=== PATIENT | female | born 1960 | race Two or more races ===

== ENCOUNTER 2025-09-11 03:17 | Inpatient (IN) | payer OTHER ==
[~2025-09-11] VITALS: Ht 165.1 cm; Wt 77.3 kg
--- NOTE | 2025-09-11 04:04 | ED.PDOC ---
HPI Comments 65-year-old female who came to ER due to chest pains. Patient has history of AFib, and she takes Xarelto for AFib. For the past 3 days, she has been having intermittent episodes of palpitations, associated with chest pains and shortness of breath. Upon arrival to the ER, EKGs revealed patient is on AFib Chief Complaint: Chest Pain Time Seen by MD: 04:04 Reviewed Notes: Nurses Notes Allergies: Coded Allergies: NO KNOWN ALLERGIES (Unverified , 09/11/25) Mode of Arrival: Ambulatory Severity: Moderate Timing: Days Duration: Intermittent Location: Substernal Radiation: No Radiation Quality: Aching, Other (Palpitations) Cardiac Risk Factors: HTN, Other (AFib) Past Medical History PAST MEDICAL HISTORY: AFIB, HTN Surgical History: Denies all surgeries INDUSTRIAL CONTROLLER History: Denies all INDUSTRIAL CONTROLLER Hx Family History Family History: Reviewed,noncontributory to illness Social History Smoker: Non-Smoker Alcohol: Denies ETOH Use Drugs: Denies Drug Use Lives In: Home Constitutional: denies: chills, diaphoresis, fatigue, fever, malaise, sweats, weakness, others EENTM: denies: blurred vision, double vision, ear bleeding, ear discharge, ear drainage, ear pain, ear ringing, eye pain, eye redness, hearing loss, mouth pain, mouth swelling, nasal discharge, nose bleeding, nose congestion, nose pain, photophobia, tearing, throat pain, throat swelling, voice changes, others Respiratory: reports: shortness of breath; denies: cough, hemoptysis, or thopnea, SOB at rest, SOB with excertion, stridor, wheezing, others Cardiovascular: reports: chest pain, palpitations; denies: dizzy spells, diaphoresis, Dyspnea on exertion, edema, irregular heart beat, left arm pain, lightheadedness, PND, syncope, others Gastrointestinal: denies: abdomen distended, abdominal pain, blood streaked bowels, constipated, diarrhea, dysphagia, difficulty swallowing, hematemesis, melena, nausea, poor appetite, poor fluid intake, rectal bleeding, rectal pain, vomiting, others Genitourinary: denies: abnormal vagina bleeding, burning, dyspareunia, dysuria, flank pain, frequency, hematuria, incontinence, pain, , vagina d ischarge, urgency, others Neurological: denies: dizziness, fainting, headache, left sided numbness, left sided weakness, numbness, paresthesia, pre-existing deficit, right sided numbness, right sided weakness, seizure, speech problems, tingling, tremors, weakness, others Musculoskeletal: denies: back pain, gout, joint pain, joint swelling, muscle pain, muscle stiffness, neck pain, others Integumetry: denies: bruises, change in color, change in hair/nails, dryness, laceration, lesions, lumps, rash, wounds, others Allergic/Immunocompromised: denies: Difficulty Healing, Frequent Infections, Hives, Itching, others Hematologic/Lymphatic: denies: anemia, blood clots, easy bleeding, easy bruising, swollen glands, others Endocrine: denies: excessive hunger, excessive sweating, excessive thirst, excessive urination, flushing, intolerance to cold, intolerance to heat, unexplained weight gain, unexplained weight loss, others Psychiatric: denies: anxiety, bipolar disorder, depression, hopeless, panic disorder, schizophrenia, sleepless, suicidal, others Physical Exam General Appearance: No Apparent Distress, Normal HEENT: Normal ENT Inspection, Pharynx Normal, TMs Normal Neck: Full Range of Motion, Non-Tender, Normal, Normal Inspection Respiratory: Chest Non-Tender, Lungs Clear, No Accessory Muscle Use, No Respiratory Distress, Normal Breath Sounds Cardiovascular: No Edema, No JVD, No Murmur, No Gallop, Normal Peripheral Pulses, Regular Rate/Rhythm Breast Exam: Deferred Gastrointestinal: No Organomegaly, Non Tender, No Pulsatile Mass, Normal Bowel Sounds, Soft Genitalia: Deferred Pelvic: Deferred Rectal: Deferred Extremities: No calf tenderness, Normal capillary refill, Normal inspection, Normal range of motion, Non-tender, No pedal edema Musculoskeletal : Apperance: Normal Neurologic: Alert, sales service rep II-XII nml as Tested, No Motor Deficits, Normal Affect, Normal Mood, No Sensory Deficits Cerebellar Function: Normal Reflexes: Normal Skin: Dry, Normal Color, Warm Lymphatic: No Adenopathy EKG EKG : Pulse Rate (adult): 164 Cardiac Rhythm: Afib Was a procedure done? Was a procedure done?: No CP Differential Dx Differential Diagnosis: A-fib, Angina, Anxiety / Panic Attack, Electrolyte Disorder, Hyperthyroidism, Hyperventilation, Renal Failure, Sinus Tachycardia X-Ray, Labs, Meds, VS Vital Signs Date Time Temp Pulse Resp B/P (MAP) Pulse Ox O2 Delivery O2 Flow Rate FiO2 09/11/25 04:04 164 09/11/25 03:27 164 09/11/25 03:19 98.0 80 18 123/89 98 98.0 Lab Test 09/11/25 04:44 09/11/25 03:45 Range/Units Troponin I High Sensitivity Pending 5 </=34 ng/L White Blood Count 10.7 4.4-10.8 10^3/uL Red Blood Count 4.38 4.0-5.20 10^6/uL Hemoglobin 14.9 12.2-16.2 g/dL Hematocrit 43.1 36.0-46.0 % Mean Corpuscular Volume 98.6 80.0-100.0 fL Mean Corpuscular Hemoglobin 34.0 H 28.0-32.0 pg Mean Corpuscular Hemoglobin Concent 34.5 32.0-36.0 g/dL Red Cell Distribution Width 14.7 H 11.8-14.3 % Platelet Count 272 140-450 10^3/uL Mean Platelet Volume 8.5 6.9-10.8 fL Neutrophils (%) (Auto) 77.4 37.0-80.0 % Lymphocytes (%) (Auto) 12.2 10.0-50.0 % Monocytes (%) (Auto) 8.1 0.0-12.0 % Eosinophils (%) (Auto) 1.8 0.0-7.0 % Basophils (%) (Auto) 0.5 0.0-2.0 % Neutrophils # (Auto) 8.3 1.6-8.6 10 ^3/uL Lymphocytes # (Auto) 1.3 0.4-5.4 10 ^3/uL Monocytes # (Auto) 0.9 0-1.3 10 ^3/uL Eosinophils # (Auto) 0.2 0-0.8 10 ^3/uL Basophils # (Auto) 0.1 0-0.2 10 ^3/uL Nucleated Red Blood Cells 0.1 % Prothrombin Time Pending Prothrombin Time INR Pending Activated Partial Thromboplast Time Pending Sodium Level 145 136-145 mmol/L Potassium Level 4.3 3.5-5.1 mmol/L Chloride Level 108 H 98-107 mmol/L Carbon Dioxide Level 27 20-31 mmol/L Anion Gap 10 5-15 Blood Urea Nitrogen 11 9-23 mg/dL Creatinine 1.01 0.550-1.02 mg/dL Glomerular Filtration Rate Calc 61 >90 mL/min BUN/Creatinine Ratio 10.9 10.0-20.0 Serum Glucose 105 74-106 mg/dL Calcium Level 9.1 8.7-10.4 mg/dL Magnesium Level 2.1 1.6-2.6 mg/dL Total Bilirubin 0.5 0.2-1.0 mg/dL Aspartate Amino Transferase (AST) 24 13-40 U/L Alanine Aminotransferase (ALT) 31 7-40 U/L Alkaline Phosphatase 72 46-116 U/L B-Type Natriuretic Peptide 85.44 0-100 pg/mL Total Protein 6.7 5.7-8.2 g/dL Albumin 4.2 3.2-4.8 g/dL Thyroid Stimulating Hormone (TSH) Pending Free Thyroxine (T4) Calculated Pending Time of 1ST Reevaluation: 03:52 Reevaluation 1ST: Unchanged Patient Education/Counseling: Diagnosis, Treatment Family Education/Counseling: Diagnosis, Treatment SEPSIS Sepsis Screen Date sepsis recognized/suspect: Sep 11, 2025 Time Sepsis recognized/suspect: 320 Recent Procedure: No On Antibiotic Therapy: No Respiratory Rate >20: No Heart Rate >90: No Temp<36 C (96.8 F) or >38.3 C: No SBP <90 or MAP <65 mmHG: No New Acute Mental Status Change: No Is the patient on CPAP, BIPAP,: No Physician Orders Electrocardigram (09/11/25 03:31) Electrocardigram (09/11/25 04:31) Electrocardigram (09/11/25 06:31) Chest Portable (09/11/25 03:39) PTPTT (09/11/25 03:39) Thyroid Stimulating Hormone (09/11/25 03:39) Troponin-I Hs (09/11/25 04:39) Troponin-I Hs (09/11/25 06:39) Free T4 (Free Thyroxine) (09/11/25 03:39) Vital Signs Date Time Temp Pulse Resp B/P (MAP) Pulse Ox O2 Delivery O2 Flow Rate FiO2 09/11/25 04:04 164 09/11/25 03:27 164 09/11/25 03:19 98.0 80 18 123/89 98 98.0 Laboratory Tests Test 09/11/25 03:45 White Blood Count 10.7 10^3/uL (4.4-10.8) Departure 1 Departure Time of Disposition: 05:15 Impression: Primary Impression: Atrial fibrillation with rapid ventricular response Additional Impression: Acute coronary syndrome Disposition: ADMITTED INPATIENT Admit to: Tele Condition: Guarded Discharged With: Self Comments 65-year-old female with a history of paroxysmal show atrial fibrillation. Patient is in AFib in her rate is quite tachycardic. Lab results and chest x- ray results reviewed. Patient will need admission for rate control and further cardiac workup. Critical Care Note Critical Care Time?: Yes (35 min-critical care time only) Critical care comment: AFibTotal critical care time: Approximately 36 minutes Due to a high probability of clinically significant, life threatening deterioration, the patient required my highest level of preparedness to intervene emergently and I personally spent this critical care time directly and personally managing the patient. This critical care time included obtaining a history; examining the patient; pulse oximetry; ordering and review of studies; arranging urgent treatment with development of a management plan; evaluation of patient's response to treatment; frequent reassessment; and, discussions with other providers. This critical care time was performed to assess and manage the high probability of imminent, life-threatening deterioration that could result in multi-organ failure. It was exclusive of separately billable procedures and treating other patients. Stability Stability form required: No Heart Score Heart Score: Heart Score Response (Comments) Value History Moderate Suspicious 1 EKG Repolarization Disturb 1 Age >65 2 Risk Factors 1 or 2 risk factors 1 Troponin Normal limit 0 Total 5 I personally scribed for AMINA ROMERO MD ([email or web address]) on 09/11/25 at 04:04. Electronically submitted by Sunny Perry ([email or web address]). AMINA ROMERO MD Sep 11, 2025 04:04
--- NOTE | 2025-09-11 04:35 | DVH ---
CHEST RADIOGRAPH Indication: SOB Technique: Single frontal view of the chest was obtained Comparison: None IMPRESSION: Heart appears normal in size. The lungs appear clear without focal airspace opacity, effusion, or pn eumothorax.
[2025-09-11 04:37] LABS: Alanine Aminotransferase 31 U/L (7-40); Albumin 4.2 g/dL (3.2-4.8); Alkaline Phosphatase 72 U/L (46-116); Anion Gap 10 (5-15); BUN/Creatinine Ratio 10.9 (10.0-20.0); Bilirubin, Total 0.5 mg/dL (0.2-1.0); Blood Urea Nitrogen 11 mg/dL (9-23); Calcium 9.1 mg/dL (8.7-10.4); Carbon Dioxide 27 mmol/L (20-31); Glucose 105 mg/dL (74-106); Magnesium 2.1 mg/dL (1.6-2.6); Potassium 4.3 mmol/L (3.5-5.1); Sodium 145 mmol/L (136-145); Total Protein 6.7 g/dL (5.7-8.2)
[2025-09-11 04:44] LABS: Hematocrit 43.1 % (36.0-46.0); Hemoglobin 14.9 g/dL (12.2-16.2); Mean Corpuscular Hemoglobin 34.0 pg (28.0-32.0); Mean Corpuscular Volume 98.6 fL (80.0-100.0); Nucleated Red Blood Cells % 0.1 %
[2025-09-11 04:52] LABS: Chloride 108 mmol/L (98-107)
[2025-09-11 05:15] LABS: INR 1.2 (0.9-1.15); Partial Thromboplastin Time 36.8 SEC (24.5-34.5); Prothrombin Time 12.5 sec (9.3-11.8)
--- NOTE | 2025-09-11 06:44 | DVHHP2 ---
Admitting Diagnosis: Afib with RVR, CP History of Present Illness History Source: Patient Exam Limitations: No limitations HPI Mrs. Martina Haque is a 65-year-old female with a history of afib, hypertension who presents with a chief complaint of chest pains. Patient reports for the past 3 days, she has been having intermittent episodes of palpitations, associated with chest pains and shortness of breath. Patient reports midsternal non radiating chest pain dull in nature with associated palpitations. Patient endorses her kitchen supervisor is Dr. Goetz. Patient denies dizziness, nausea, vomiting, dyspnea. Patient EKG resulted atrial fibrillation with rapid ventricular rhythm. Patient admitted for further evaluation and treatment. Past Medical History Cardiac: AFIB, HTN Pulmonary: No pertinent Hx Central Nervous System: No pertinent Hx GI: No pertinent Hx Hemotology/Oncology: No pertinent Hx Hepatobiliary: No pertinent Hx Psychiatric: No pertinent Hx Musculoskeletal: No pertinent Hx Rheumotologic: No pertinent Hx Infectious Disease: No peritnent Hx ENT: No pertinent Hx Renal/: No pertinent Hx Endocrine: No pertinent Hx Dermatology: No pertinent Hx Smoker: No Hx (Negative) Alocohol: None Drugs: None Domestic Violence: Neg Review of Systems Constitutional: No symptom reported Ears, Nose, & Throat: No symptom reported Eyes: No symptom reported Pulmonary/Respiratory: No symptom reported Cardiovascular: Chest Pain, Palpitations Gastrointestinal: No symptom reported Genitourinary: No symptom reported Musculoskeletal: No symptom reported Skin: No symptom reported Psychiatric: No symptom reported Endocrine: No symptom reported Hemotologic/Lymphatic: No symptom reported H&P Exam Vital Signs Vital Signs Date Time Temp Pulse Resp B/P (MAP) Pulse Ox O2 Delivery O2 Flow Rate FiO2 09/11/25 04:04 164 09/11/25 03:19 98.0 18 123/89 98 98.0 General Appeara: Well developed, Well nourished, Normal Appearance Head Exam: Normal inspection Neck Exam: Normal inspection, Non-tender, Normal alignment Eye Exam: bilateral eye Normal inspection, bilateral eye PERRL, bilateral eye EOMI Ear Exam: bilateral ear Auricle normal Nasal Exam: Normal inspection Mouth: Normal Inspection Pulmonary/Respiratory: Normal inspection, Normal breath sounds, Chest non- tender, Lungs clear Cardiovascular/Chest: Normal inspection, Tachycardia, Irregularly irregular Peripheral Pulses: 2+ dorsalis pedis (R), 2+ dorsalis pedis (L), 2+ Radial (R), 2+ Radial (L) Abdominal Exam: Normal bowel sounds, Soft Tendon/ Neuro: Normal sensation ECONOMIC RESEARCH ASSISTANT Exam: Normal hearing, PERRL Motor/Sensory: Normal sensory function, Normal motor function Neuro/Mental St: Alert, Oriented Appearance: Appropriate appearance, Appropriate insight Eye contact/ Speech: Cooperative, Good eye contact Thoughts/Psych: Normal thought pattern Skin Exam: Normal inspection, Normal color, Warm/dry SEPSIS Sepsis Screen Date sepsis recognized/suspect: Sep 11, 2025 Time Sepsis recognized/suspect: 320 Recent Procedure: No On Antibiotic Therapy: No Respiratory Rate >20: No Heart Rate >90: No Temp<36 C (96.8 F) or >38.3 C: No SBP <90 or MAP <65 mmHG: No New Acute Mental Status Change: No Is the patient on CPAP, BIPAP,: No Physician Orders Electrocardigram (09/11/25 03:31) Electrocardigram (09/11/25 04:31) Electrocardigram (09/11/25 06:31) Chest Portable (09/11/25 03:39) Troponin-I Hs (09/11/25 06:39) Free T4 (Free Thyroxine) (09/11/25 03:39) Amiodarone 360mg/200ml Premix (Nexterone (09/11/25 05:30) Amiodarone 360mg/200ml Premix (Nexterone (09/11/25 11:30) Admit (09/11/25 06:35) * Cardiology Consult (09/11/25 06:35) Echo 2d Mode Cardiac Dop (09/11/25 06:35) Basic Metabolic Panel (09/11/25 06:35) Cardiac Diet-2gna,Lofat,Lochol (09/11/25 Breakfast) Full Code (09/11/25 06:35) Nitroglycerin Sublingual (Ntrostat Subli (09/11/25 06:45) Morphine Sulfate Injection (09/11/25 06:45) Stat Ekg For Chest Pain (09/11/25 06:35) Notify Md Of Changes From Base (09/11/25 06:35) Rayon Winder For 24 Hours (09/11/25 06:35) Emergency Dysrhythmia Protocol (09/11/25 06:35) Rhythm Strips Once Every Shift (09/11/25 06:35) Oxygen By Nasal Cannula (09/11/25 06:35) Magnesium (09/11/25 06:35) Full Code (09/11/25 06:35) Ondansetron Hcl (Zofran) (09/11/25 06:45) Acetaminophen Tablet (Tylenol Tablet) (09/11/25 06:45) Famotidine Tablet (Pepcid Tablet) (09/11/25 10:00) Hydrocodone-Acet 5/325mg Tab (Rescue 5/32 (09/11/25 06:45) Aspirin Tablet (09/11/25 10:00) Enoxaparin Sodium (Lovenox) (09/11/25 10:00) Vital Signs Date Time Temp Pulse Resp B/P (MAP) Pulse Ox O2 Delivery O2 Flow Rate FiO2 09/11/25 04:04 164 09/11/25 03:27 164 09/11/25 03:19 98.0 80 18 123/89 98 98.0 Laboratory Tests Test 09/11/25 03:45 White Blood Count 10.7 10^3/uL (4.4-10.8) Labs/Xrays Labs Test 09/11/25 06:27 09/11/25 03:45 Range/Units White Blood Count 10.7 4.4-10.8 10^3/uL Red Blood Count 4.38 4.0-5.20 10^6/uL Hemoglobin 14.9 12.2-16.2 g/dL Hematocrit 43.1 36.0-46.0 % Mean Corpuscular Volume 98.6 80.0-100.0 fL Mean Corpuscular Hemoglobin 34.0 H 28.0-32.0 pg Mean Corpuscular Hemoglobin Concent 34.5 32.0-36.0 g/dL Red Cell Distribution Width 14.7 H 11.8-14.3 % Platelet Count 272 140-450 10^3/uL Mean Platelet Volume 8.5 6.9-10.8 fL Neutrophils (%) (Auto) 77.4 37.0-80.0 % Lymphocytes (%) (Auto) 12.2 10.0-50.0 % Monocytes (%) (Auto) 8.1 0.0-12.0 % Eosinophils (%) (Auto) 1.8 0.0-7.0 % Basophils (%) (Auto) 0.5 0.0-2.0 % Neutrophils # (Auto) 8.3 1.6-8.6 10 ^3/uL Lymphocytes # (Auto) 1.3 0.4-5.4 10 ^3/uL Monocytes # (Auto) 0.9 0-1.3 10 ^3/uL Eosinophils # (Auto) 0.2 0-0.8 10 ^3/uL Basophils # (Auto) 0.1 0-0.2 10 ^3/uL Nucleated Red Blood Cells 0.1 % Prothrombin Time 12.5 H 9.3-11.8 sec Prothrombin Time INR 1.20 H 0.9-1.15 Activated Partial Thromboplast Time 36.8 H 24.5-34.5 SEC Sodium Level 145 136-145 mmol/L Potassium Level 4.3 3.5-5.1 mmol/L Chloride Level 108 H 98-107 mmol/L Carbon Dioxide Level 27 20-31 mmol/L Anion Gap 10 5-15 Blood Urea Nitrogen 11 9-23 mg/dL Creatinine 1.01 0.550-1.02 mg/dL Glomerular Filtration Rate Calc 61 >90 mL/min BUN/Creatinine Ratio 10.9 10.0-20.0 Serum Glucose 105 74-106 mg/dL Calcium Level 9.1 8.7-10.4 mg/dL Magnesium Level 2.1 1.6-2.6 mg/dL Total Bilirubin 0.5 0.2-1.0 mg/dL Aspartate Amino Transferase (AST) 24 13-40 U/L Alanine Aminotransferase (ALT) 31 7-40 U/L Alkaline Phosphatase 72 46-116 U/L B-Type Natriuretic Peptide 85.44 0-100 pg/mL Total Protein 6.7 5.7-8.2 g/dL Albumin 4.2 3.2-4.8 g/dL Thyroid Stimulating Hormone (TSH) 0.47 L 0.55-4.78 uIU/mL Assessment/Plan Problem List: (1) Atrial fibrillation with rapid ventricular response (2) Chest pain Plan This is a 65 yo female with a history of Afib, hypertension who presents with non radiating midsternal chest pain , and palpitations. Patient found to have 1. Afib with RVR 2. Chest pain r/o ACS 3. Hypertension Plan Admit telemetry Cardiology consultation, 2D echocardiogram, serial troponin levels, ASA, Lovenox 1mg/kg SC q 12h Monitor BMP Analgesics as needed Antihypertensive as needed Discussed all above with patient who verbalizes agreement and understanding of care plan . All questions were answered. Discussed with supervising MD. Plan discussed with: Patient, Other Code Visit Code Visit Total Time (mins): 45 Additional Comments Additional Comments Additional Comments Patient is seen and evaluated and admitted by nurse practitioner this morning. Patient's chart is reviewed and I agree with the nurse practitioner's evaluation, documentation, assessment and care plan as outlined. JARRELL MONTALVO Sep 11, 2025 06:44 MEENAKSHI BYERS MD Sep 11, 2025 16:39
[2025-09-11] MEDS ORDERED: ONDANSETRON HCL 4 MG/2 ML VIAL IV PRN (06:45)
[2025-09-11] MEDS ORDERED: HYDROcodone-ACET 5/325MG TAB PO PRN (06:45)
[2025-09-11] MEDS ORDERED: NITROGLYCERIN 0.4 MG SL TAB SL PRN (06:45)
[2025-09-11] MEDS ORDERED: MORPHINE SULFATE INJ 2 MG/ml SYRG IV PRN (06:45)
[2025-09-11 07:32] LABS: Potassium 4.8 mmol/L (3.5-5.1)
[2025-09-11 07:33] LABS: Anion Gap 9 (5-15); Carbon Dioxide 27 mmol/L (20-31)
[2025-09-11 07:34] LABS: Calcium 8.9 mg/dL (8.7-10.4)
[2025-09-11 07:38] LABS: BUN/Creatinine Ratio 12.4 (10.0-20.0); Blood Urea Nitrogen 13 mg/dL (9-23)
[2025-09-11 07:39] LABS: Magnesium 2.0 mg/dL (1.6-2.6)
[2025-09-11 07:41] LABS: Chloride 109 mmol/L (98-107); Glucose 115 mg/dL (74-106); Sodium 145 mmol/L (136-145)
[2025-09-11 07:50] LABS: Triglycerides 86 mg/dL (< 150)
[2025-09-11] MEDS: METOPROLOL TARTRATE 1MG/1ML-5ML VIAL IV SCH (07:52)
[2025-09-11 07:56] LABS: Cholesterol 207 mg/dL (< 200); HDL Cholesterol 81 mg/dL (40-59)
[2025-09-11] MEDS: ENOXAPARIN SOD 100 MG/1 ML SYRINGE SC SCH (09:47)
[2025-09-11] MEDS: FAMOTIDINE 20 MG TAB PO SCH (09:47)
[2025-09-11 10:02] LABS: Urine Protein, UAD Negative (Negative)
[2025-09-11] MEDS: AMIODARONE BOLUS KIT 100 ML IV ONE (10:23)
[2025-09-11] MEDS: AMIODARONE 360mg/200mL PREMIX 200 ML IV ONE (10:23)
[2025-09-11] MEDS: AMIODARONE 360mg/200mL PREMIX 200 ML IV SCH (11:30)
--- NOTE | 2025-09-11 15:51 | DVHSR ---
APPROVED REPORT EXAM: Two-dimensional and M-mode echocardiogram with Doppler and color Doppler. Blood Pressure: 137/85 mmHg INDICATION Chest Pain Atrial Fibrillation W/ RVR RISK FACTORS Obesity: Height: 5' 5", Weight: 220 DIMENSIONS LVDd4.0 (3.8-5.7cm)LA (2D)3.3 (1.9-4.0cm)Aortic Root3.1 (2.0-3.7cm) LVDs2.9 (2.5-4.0cm)LA (MM) (1.9-4.0cm)Aortic Cusp Exc1.5 (1.5-2.0cm) EF (%) 55.0 (55-70%)Rt. Atrium3.7 (1.9-4.0cm)Asc. Aorta cm IVSd1.0 (0.7-1.1cm)RV (D) (1.8-2.4cm) PWd1.0 (0.7-1.1cm) Mitral Valve MitralMitral Stenosis E wave0.80m/sMV Mean GR.mmHg A wave1.00m/sMV Peak GR.mmHg E/A ratio0.82D MVAcm2 Aortic Valve Aortic ValveAortic Stenosis V11.20m/Toma Mean GR.7mmHg V21.80m/Toma Peak GR.14mmHg LVOT Diameter2.0 (1.8-2.4cm)Doppler AVA2.09cm2 Tricuspid Valve TR Velocity3.20m/s [id number] Conclusion Technically good study. Sinus rhythm. Normal chamber sizes. Normal valves. Left ventricular systolic function is preserved at 60% with normal RV function. Moderate TR. RVSP of 50 mmHg. No pericardial effusion masses or vegetations. Pericardial fat pad noted.
[2025-09-11] MEDS: ACETAMINOPHEN 325 MG TAB PO PRN (17:09)
[2025-09-11 17:11] VITALS: BP 140/89; PULSE 96; RESP 17; TEMP 98.7; O2SAT 95
--- NOTE | 2025-09-11 19:07 | DVHINCON2 ---
Date of service: Sep 12, 2025 History of Present Illness 65 yo F with hx of afib, htn, obesity admitted for afib rvr after having palps on boat cruise x 3days. ecg showed rapid flutter with PVCs Past Medical History reviewed Allergies: Coded Allergies: NO KNOWN ALLERGIES (Unverified , 09/11/25) Home Meds Reported Medications Metoprolol Succinate (Metoprolol Succinate Er) 25 Mg Tab, 25 MG PO DAILY for 30 Days, MG 09/11/25 Rivaroxaban (XARELTO) 20 Mg Tab, 1 TAB PO DAILY, #30 TAB 11 Refills 09/11/25 Atorvastatin Calcium (ATORVASTATIN CALCIUM) 80 Mg Tab, 1 TAB PO HS, #30 TAB 5 Refills 09/11/25 Sacubitril-Valsartan (Entresto 24-26 mg) 1 Tab Tab, 1 TAB PO BID, TAB 09/11/25 Methimazole (Methimazole) Pow, 75 MCG PO DAILY, POW 09/11/25 Current Medications Current Medications Medications (Trade) Dose Ordered Sig/Christi Route PRN Reason Start Time Stop Time Status Last Admin Metoprolol Tartrate (Lopressor) 5 mg Q5M IV 09/11/25 03:45 09/11/25 04:07 DC Amiodarone HCL/ Dextrose 200 ml @ 16.66 mls/ hr Q12H IV 09/11/25 11:30 Nitroglycerin (Ntrostat Sublingual) 0.4 mg Q5MINP PRN SL FOR CHEST PAIN 09/11/25 06:45 Morphine Sulfate 2 mg Q30M PRN IV FOR CHEST PAIN 09/11/25 06:45 Ondansetron HCl (Zofran) 4 mg Q6HPRN PRN IV NAUSEA / VOMITING 09/11/25 06:45 Acetaminophen (Tylenol Tablet) 650 mg Q6HPRN PRN PO PAIN SCALE 1-3 OR TEMP>100.4 09/11/25 06:45 09/11/25 17:09 Famotidine (Pepcid Tablet) 20 mg BID PO 09/11/25 10:00 09/11/25 09:47 Acetaminophen/ Hydrocodone Bitart ([place] 5/325MG Tab) 1 tab Q6HPRN PRN PO PAIN SCALE 1 THRU 6 09/11/25 06:45 Aspirin 81 mg DAILY PO 09/11/25 10:00 09/11/25 09:47 Enoxaparin Sodium (Lovenox) 100 mg Q12HR SC 09/11/25 10:00 09/11/25 09:47 Atorvastatin Calcium (Lipitor) 40 mg HS PO 09/11/25 22:00 Methimazole (Tapazole) 5 mg Q8HR PO 09/11/25 22:00 Review of Systems 10 pt ros otherwise negative Vital Signs Vital Signs Date Time Temp Pulse Resp B/P (MAP) Pulse Ox O2 Delivery O2 Flow Rate FiO2 09/11/25 17:11 98.7 96 17 140/89 (106) 95 98.7 09/11/25 09:13 Room Air* 0 21 Physical Exam nad s1 s2 rrr ctab softn t/nd no edema Labs/Diagnostic Data Labs Test 09/11/25 13:44 09/11/25 06:27 09/11/25 03:50 09/11/25 03:45 Range/Units Troponin I High Sensitivity 8 </=34 ng/L Sodium Level 145 136-145 mmol/L Potassium Level 4.8 3.5-5.1 mmol/L Chloride Level 109 H 98-107 mmol/L Carbon Dioxide Level 27 20-31 mmol/L Anion Gap 9 5-15 Blood Urea Nitrogen 13 9-23 mg/dL Creatinine 1.05 H 0.550-1.02 mg/dL Glomerular Filtration Rate Calc 59 >90 mL/min BUN/Creatinine Ratio 12.4 10.0-20.0 Serum Glucose 115 H 74-106 mg/dL Calcium Level 8.9 8.7-10.4 mg/dL Magnesium Level 2.0 1.6-2.6 mg/dL Triglycerides Level 86 < 150 mg/dL Cholesterol Level 207 H < 200 mg/dL LDL Cholesterol 114 H < 100 mg/dL HDL Cholesterol 81 H 40-59 mg/dL Urine Color Light-yellow Yellow Urine Clarity Turbid H Clear Urine pH 5.0 5.0-9.0 Urine Specific [place] 1.013 1.001-1.035 Urine Protein Negative Negative Urine Ketones Negative Negative Urine Blood Trace H Negative /uL Urine Nitrite Negative Negative Urine Bilirubin Negative Negative Urine Urobilinogen Normal Negative mg/dL Urine Leukocyte Esterase 1+ Negative /uL Urine RBC 1 0 - 4 /hpf Urine Microscopic WBC 4 0-5 /HPF Urine Squamous Epithelial Cells Few <5 /hpf Urine Bacteria Few H None Seen /hpf Urine Glucose Normal Normal mg/dL White Blood Count 10.7 4.4-10.8 10^3/uL Red Blood Count 4.38 4.0-5.20 10^6/uL Hemoglobin 14.9 12.2-16.2 g/dL Hematocrit 43.1 36.0-46.0 % Mean Corpuscular Volume 98.6 80.0-100.0 fL Mean Corpuscular Hemoglobin 34.0 H 28.0-32.0 pg Mean Corpuscular Hemoglobin Concent 34.5 32.0-36.0 g/dL Red Cell Distribution Width 14.7 H 11.8-14.3 % Platelet Count 272 140-450 10^3/uL Mean Platelet Volume 8.5 6.9-10.8 fL Neutrophils (%) (Auto) 77.4 37.0-80.0 % Lymphocytes (%) (Auto) 12.2 10.0-50.0 % Monocytes (%) (Auto) 8.1 0.0-12.0 % Eosinophils (%) (Auto) 1.8 0.0-7.0 % Basophils (%) (Auto) 0.5 0.0-2.0 % Neutrophils # (Auto) 8.3 1.6-8.6 10 ^3/uL Lymphocytes # (Auto) 1.3 0.4-5.4 10 ^3/uL Monocytes # (Auto) 0.9 0-1.3 10 ^3/uL Eosinophils # (Auto) 0.2 0-0.8 10 ^3/uL Basophils # (Auto) 0.1 0-0.2 10 ^3/uL Nucleated Red Blood Cells 0.1 % Prothrombin Time 12.5 H 9.3-11.8 sec Prothrombin Time INR 1.20 H 0.9-1.15 Activated Partial Thromboplast Time 36.8 H 24.5-34.5 SEC Total Bilirubin 0.5 0.2-1.0 mg/dL Aspartate Amino Transferase (AST) 24 13-40 U/L Alanine Aminotransferase (ALT) 31 7-40 U/L Alkaline Phosphatase 72 46-116 U/L B-Type Natriuretic Peptide 85.44 0-100 pg/mL Total Protein 6.7 5.7-8.2 g/dL Albumin 4.2 3.2-4.8 g/dL Thyroid Stimulating Hormone (TSH) 0.47 L 0.55-4.78 uIU/mL Assessment afib chest pain r/o acs obesity htn Plan/Recommendation cont xarelto parox Afib dc home on BB add multaq 400 mg daily (pt was on amio in past) negative lexiscan outpt fu 2 weeks Plan discussed with: Patient YOVANI HALEY MD Sep 11, 2025 19:07
[2025-09-11] MEDS ORDERED: SACU1TAB PO (20:00)
[2025-09-11] MEDS ORDERED: METHPOW PO (20:00)
[2025-09-11] MEDS ORDERED: ATOR-47 PO (20:00)
[2025-09-11] MEDS ORDERED: RIVA20TA PO (20:00)
[2025-09-11] MEDS ORDERED: METO25TA93 PO (20:00)
[2025-09-11 21:00] VITALS: BP 135/79; PULSE 94; RESP 16; TEMP 99.2; O2SAT 94
[2025-09-11] MEDS: ATORVASTATIN 20 MG TAB PO SCH (21:00)
[2025-09-11] MEDS: methIMAzole 5 MG TAB PO SCH (21:00)
[2025-09-12 00:59] VITALS: BP 147/87; PULSE 98; RESP 16; TEMP 98.7; O2SAT 93
[2025-09-12 05:00] VITALS: BP 150/89; PULSE 96; RESP 16; TEMP 98.7; O2SAT 94
[2025-09-12 05:27] LABS: Hematocrit 38.3 % (36.0-46.0); Hemoglobin 13.1 g/dL (12.2-16.2); Mean Corpuscular Hemoglobin 33.7 pg (28.0-32.0); Mean Corpuscular Volume 99.1 fL (80.0-100.0); Nucleated Red Blood Cells % 0.0 %
[2025-09-12 05:38] LABS: Anion Gap 9 (5-15); Carbon Dioxide 26 mmol/L (20-31); Potassium 3.9 mmol/L (3.5-5.1); Sodium 144 mmol/L (136-145)
[2025-09-12 05:44] LABS: BUN/Creatinine Ratio 8.3 (10.0-20.0); Glucose 99 mg/dL (74-106)
[2025-09-12 05:51] LABS: Blood Urea Nitrogen 8 mg/dL (9-23); Calcium 8.5 mg/dL (8.7-10.4); Chloride 109 mmol/L (98-107)
--- NOTE | 2025-09-12 07:56 | ECG ---
[facility] Test Date: 2025-09-11 Test Time: 20:27:51 Pat Name: KENNETH CHRISTOPHER Department: Respiratoy Room: [address] [place] [address] Gender: F Supervisor Special Education: LACEY : 1960 Requested By: JARRELL MONTALVO Order Number: [id number] Reading MD: Measurements Intervals [place] Rate: 93 P: 43 IN: 146 QRS: 23 QRSD: 83 T: 14 QT: 322 QTc: 401 Interpretive Statements Sinus rhythm Borderline T wave abnormalities Please click the below link to view image of tracing.
[2025-09-12] MEDS: REGADENOSON 0.4 MG/5 ML SYRG IV ONE ×2 (10:13)
--- NOTE | 2025-09-12 11:51 | DVHSR ---
APPROVED REPORT Exam: Nuclear Stress Test BMI: 0 Stress Test Details HR Max Heart Rate (APMHR): 154.815342 bpm Target HR (85% APMHR): 130.170951 bpm BP ECG Stress ECG Conclusion lvef 72% no stress induced ischemia noted NM EXAM: Myocardial Perfusion REST/STRESS Resting Data Rest SPECT myocardial perfusion imaging was performed in supine position 60 minutes following the int ravenous injection of 10 mCi of Tc-99m Sestamibi. Time of rest injection: 08:00 Date: 09/12/2025 Time of rest imagin:00 Date: 09/12/2025 Administration Route: IV Administration Site: Right Arm Pharmacologic Stress Pharmacologic stress test was performed by injecting Regadenoson 0.4 mg IV push followed by the intra venous injection of 27.1 mCi of Tc-99m Sestamibi. Time of stress injection: 10:15 Date: 09/12/2025 Time of stress imagin:15 Date: 09/12/2025 Administration Route: IV Administration Site: Right Arm Gated Stress SPECT was performed 60 minutes after stress injection. The images were gated to evaluate regional wall motion and calculate left ventricular ejection fracti on. Stress only was performed in the Supine position. Nuclear Conclusion Nuclear Findings: negative for ischemia lvef 72% no stress induced ischemia noted
[2025-09-12] MEDS ORDERED: DRON400T PO (14:08)
[2025-09-12] MEDS ORDERED: METO25TA93 PO (14:08)
--- NOTE | 2025-09-12 14:21 | DVHDS2 ---
Discharge Summary Date of Admission Sep 11, 2025 at 06:35 Date of Discharge: Sep 12, 2025 Labs/Diagnostic Data: Laboratory Results Test 09/12/25 04:49 09/11/25 22:25 09/11/25 06:27 09/11/25 03:50 White Blood Count 7.4 10^3/uL (4.4-10.8) Red Blood Count 3.87 10^6/uL (4.0-5.20) Hemoglobin 13.1 g/dL (12.2-16.2) Hematocrit 38.3 % (36.0-46.0) Mean Corpuscular Volume 99.1 fL (80.0-100.0) Mean Corpuscular Hemoglobin 33.7 pg (28.0-32.0) Mean Corpuscular Hemoglobin Concent 34.1 g/dL (32.0-36.0) Red Cell Distribution Width 14.2 % (11.8-14.3) Platelet Count 217 10^3/uL (140-450) Mean Platelet Volume 8.2 fL (6.9-10.8) Neutrophils (%) (Auto) 76.8 % (37.0-80.0) Lymphocytes (%) (Auto) 11.9 % (10.0-50.0) Monocytes (%) (Auto) 9.5 % (0.0-12.0) Eosinophils (%) (Auto) 1.4 % (0.0-7.0) Basophils (%) (Auto) 0.4 % (0.0-2.0) Neutrophils # (Auto) 5.7 10 ^3/uL (1.6-8.6) Lymphocytes # (Auto) 0.9 10 ^3/uL (0.4-5.4) Monocytes # (Auto) 0.7 10 ^3/uL (0-1.3) Eosinophils # (Auto) 0.1 10 ^3/uL (0-0.8) Basophils # (Auto) 0 10 ^3/uL (0-0.2) Nucleated Red Blood Cells 0.0 % Sodium Level 144 mmol/L (136-145) Potassium Level 3.9 mmol/L (3.5-5.1) Chloride Level 109 mmol/L (98-107) Carbon Dioxide Level 26 mmol/L (20-31) Anion Gap 9 (5-15) Blood Urea Nitrogen 8 mg/dL (9-23) Creatinine 0.96 mg/dL (0.550-1.02) Glomerular Filtration Rate Calc 65 mL/min (>90) BUN/Creatinine Ratio 8.3 (10.0-20.0) Serum Glucose 99 mg/dL (74-106) Calcium Level 8.5 mg/dL (8.7-10.4) Troponin I High Sensitivity 12 ng/L (</=34) Magnesium Level 2.0 mg/dL (1.6-2.6) Triglycerides Level 86 mg/dL (< 150) Cholesterol Level 207 mg/dL (< 200) LDL Cholesterol 114 mg/dL (< 100) HDL Cholesterol 81 mg/dL (40-59) Urine Color Light-yellow (Yellow) Urine Clarity Turbid (Clear) Urine pH 5.0 (5.0-9.0) Urine Specific Benedict 1.013 (1.001-1.035) Urine Protein Negative (Negative) Urine Ketones Negative (Negative) Urine Blood Trace /uL (Negative) Urine Nitrite Negative (Negative) Urine Bilirubin Negative (Negative) Urine Urobilinogen Normal mg/dL (Negative) Urine Leukocyte Esterase 1+ /uL (Negative) Urine RBC 1 /hpf (0 - 4) Urine Microscopic WBC 4 /HPF (0-5) Urine Squamous Epithelial Cells Few /hpf (<5) Urine Bacteria Few /hpf (None Seen) Urine Glucose Normal mg/dL (Normal) Test 09/11/25 03:45 Prothrombin Time 12.5 sec (9.3-11.8) Prothrombin Time INR 1.20 (0.9-1.15) Activated Partial Thromboplast Time 36.8 SEC (24.5-34.5) Total Bilirubin 0.5 mg/dL (0.2-1.0) Aspartate Amino Transferase (AST) 24 U/L (13-40) Alanine Aminotransferase (ALT) 31 U/L (7-40) Alkaline Phosphatase 72 U/L (46-116) B-Type Natriuretic Peptide 85.44 pg/mL (0-100) Total Protein 6.7 g/dL (5.7-8.2) Albumin 4.2 g/dL (3.2-4.8) Thyroid Stimulating Hormone (TSH) 0.47 uIU/mL (0.55-4.78) Free Thyroxine (T4) Calculated 1.50 ng/dL (0.89-1.76) Other Laboratory Tests 09/12/25 04:49 Brief Hx & Hospital Course: Mrs. Martina Haque is a 65-year-old female with a history of afib, hypertension who presents with a chief complaint of chest pains. Patient reports for the past 3 days, she has been having intermittent episodes of palpitations, associated with chest pains and shortness of breath. Patient reports midsternal non radiating chest pain dull in nature with associated palpitations. Patient endorses her tv news director is Dr. Haley. Patient denies dizziness, nausea, vomiting, dyspnea. Patient EKG resulted atrial fibrillation with rapid ventricular rhythm. Patient admitted for further evaluation and treatment. She is admitted and evaluated by tv news director. Patient ruled out for any acute coronary ischemia. IV Cardiolite stress test is not real. Patient noted to be in paroxysmal atrial fibrillation for which she is started on Multaq as well as advised to continue home beta-stephan. Patient is also advised to continue her Xarelto anticoagulation. Given her workup is being normal, patient is back to baseline normal status it is felt she can be safely discharged home. I Have talked with the patient at bedside today regarding hospital diagnosis, treatment she received, Cardiology recommendations, discharge medications ambulating side effects and instructions. She has been present longstanding of these and agreed with discharge plan of care as outlined. Consults/Reason for consult CONSULTATION REPORT . ................................................................................ ............................................................................... Date of service: Sep 12, 2025 History of Present Illness 65 yo F with hx of afib, htn, obesity admitted for afib rvr after having palps on boat cruise x 3days. ecg showed rapid flutter with PVCs Assessment afib chest pain r/o acs obesity htn Plan/Recommendation cont xarelto parox Afib dc home on BB add multaq 400 mg daily (pt was on amio in past) negative lexiscan outpt fu 2 weeks Plan discussed with: Patient YOVANI HALEY MD Sep 11, 2025 19:07 DICTATED BY:YOVANI HALEY MD Operations or Procedures 2D echocardiogram Conclusion Technically good study. Sinus rhythm. Normal chamber sizes. Normal valves. Left ventricular systolic function is preserved at 60% with normal RV function. Moderate TR. RVSP of 50 mmHg. No pericardial effusion masses or vegetations. Pericardial fat pad noted. SIGNED BY: RAFFI KAHN Sr., MD SIGNED DATE/TIME: 09/11/25 5144 Condition at Discharge: Stable Final Diagnosis/Problems List afib chest pain r/o acs s/p normal kerry scan obesity htn Discharge Disposition: Home Discharge Instruct/Medications Diet: Consistent carbohydrate, Cardiac 2g Na,low cholest Activity: No Restrictions, As Tolerated Follow Up/Referral: follow up with 3 weeks for afib management. Medications: take medications as prescribed and home meds per dc list Scheduled Atorvastatin Calcium (Atorvastatin Calcium), 1 TAB PO HS, (Reported) Dronedarone Hydrochloride (Multaq), 1 TAB PO DAILY@BREAKFAST Methimazole (Methimazole), 75 MCG PO DAILY, (Reported) Metoprolol Succinate (Metoprolol Succinate Er), 25 MG PO DAILY Rivaroxaban (Xarelto), 1 TAB PO DAILY, (Reported) Sacubitril-Valsartan (Entresto 24-26 mg), 1 TAB PO BID, (Reported) Discharge Statement: "Patient was advised to return to the ER or call 911 if any headaches, dizziness, shortness of breath, chest pain, abdominal pain, bleeding, fevers, or worsening of medical condition. Patient was counseled about treatment plan, medications, possible side effects, patientverbalized understanding. All questions were answered to the best of my ability. This discharge took greater then 30 minutes in planning, reviewing documentation, counseling the patient, and discussing with other team members." ASSESSMENT ASSESSMENT Assessment afib chest pain r/o acs s/p normal kerry scan obesity htn GANAPAVARAPU,MEENAKSHI MD Sep 12, 2025 14:21
[2025-09-12 14:54] VITALS: BP 149/79; PULSE 92; TEMP 37.1
[2025-09-12] MEDS ORDERED: DRONEDARONE HCL 400 MG TAB PO SCH (22:00)
--- NOTE | 2025-09-13 00:22 | ECG ---
[facility] Test Date: 2025-09-11 Test Time: 03:27:37 Pat Name: KENNETH CHRISTOPHER Department: ED Room: [address] [place] [address] Gender: F Senior Audit Manager: nic : [phone] Requested By: EMERGENCY EMERGENCY Order Number: [id number] Reading MD: Measurements Intervals Barnhart Rate: 164 P: 0 PA: 0 QRS: 48 QRSD: 78 T: 65 QT: 338 QTc: 559 Interpretive Statements Atrial fibrillation with rapid V-rate Paired ventricular premature complexes Aberrant conduction of SV complex(es) ST depression, probably rate related Please click the below link to view image of tracing.
== END 2025-09-12 17:39 | disposition home or self-care (01) | DRG 310 ==
LOC: ER 03:17 → OVERFLOW 06:35
PROVIDERS: ADMIT Nurse Practitioner Family; ATTEND Nurse Practitioner Family
DX: I48.0 Paroxysmal atrial fibrillation (principal); I10 Essential (primary) hypertension; E66.9 Obesity, unspecified; I49.3 Ventricular premature depolarization; Z79.01 Long term (current) use of anticoagulants; Z87.891 Personal history of nicotine dependence; Z68.28 Body mass index [BMI] 28.0-28.9, adult; Z79.899 Other long term (current) drug therapy
CPT/HCPCS: 36415; 71045; 78452; 80048; 80053; 80061; 81001; 83735; 83880; 84439; 84443; 84484; 85025; 85610; 85730; 93005; 93017; 93306; 99291; G0378